=== PATIENT | male | born 2000 | race Caucasian/White ===

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

== ENCOUNTER 2020-08-01 20:34 | Emergency (ER) | payer OTHER ==
[~2020-08-01] VITALS: Ht 182.9 cm; Wt 68.0 kg
[~2020-08-01 20:34] MED LIST changes: +PREDNISONE 20 M20 MG PO; +VENTOLIN HFA 1818 GM INH
[2020-08-02] MEDS ORDERED: PERIDEX 0.12%473 M1 SWISH&SPIT (00:20)
[2020-08-02] MEDS ORDERED: ACETAMINOPHEN-1 EAC2 PO (00:20)
[2020-08-02 00:29] VITALS: BP 147/79
== END 2020-08-02 00:29 | disposition home or self-care (01) ==
LOC: M.ERS 20:34
DX: K05.10 Chronic gingivitis, plaque induced (principal); Z98.890 Other specified postprocedural states

== ENCOUNTER 2020-08-06 13:49 | Emergency (ER) | payer OTHER ==
[~2020-08-06] VITALS: Ht 182.9 cm; Wt 68.0 kg
[~2020-08-06 13:49] MED LIST changes: +ACETAMINOPHEN-1 EAC2 PO; +PERIDEX 0.12%473 M1 SWISH&SPIT
[2020-08-06 14:13] VITALS: BP 145/78
[2020-08-06] MEDS ORDERED: APAP W/CODEINE1 TA2 PO (14:17)
[2020-08-06] MEDS ORDERED: LIDOCAINE VISC100 ML SWISH&SPIT (14:17)
== END 2020-08-06 14:14 | disposition home or self-care (01) ==
LOC: M.ERS 13:49
DX: K04.7 Periapical abscess without sinus (principal); Z77.22 Contact with and (suspected) exposure to environmental tobacco smoke (acute) (chronic); Z86.14 Personal history of Methicillin resistant Staphylococcus aureus infection